=== PATIENT | female | born 1935 | race African-American/Black ===

== ENCOUNTER → 2017-06-06 | Day surgery (SDC) | payer BC ==
[~2017-06-06] MED LIST: AMLO5TAB2 PO; ASPI325T8 PO; ATOR10TA60 PO; CLON0.1T PO; DOCU-109 PO; FOLI1TAB16 PO; HYDR-2762 PO; HYDROmorphone 2 MG/ML VIAL IV PRN; IV RINGERS,LACTATED 1000ML 1,000 ML IV SCH; LIDOCAINE 1% PF 2 ML VIAL. ID PRN; LIDOCAINE 2% PF Vial for OR 5 ML VIAL. ONE; METO-269 PO; MIRT15TA3 PO; MORPHINE SULFATE 2 MG/ML DISP.SYRIN. IV PRN; OMEP40CA5 PO; ONDANSETRON PF 4 MG/2 ML VIAL. IV PRN; PROCHLORPERAZINE 10 MG/2 ML VIAL. IV PRN; PROPOFOL 60 ML IV ONE; QUIN40TA16 PO; SODIUM PHOSPHATES 19/7GM 133 ML ENEMA. ONE; TRAZ100T12 PO; VERA240T72 PO; fentaNYL PF VIAL 100 MCG/2 ML VIAL IV PRN
[2017-06-06 10:10] VITALS: BP 156/95
--- NOTE | 2017-06-07 15:05 | PATHOLOGY ---
PATHOLOGY REPORT * * * * * * * * FINAL DIAGNOSIS: Gastric biopsies, gastric ulcer: - Reactive gastropathy with focal mild chronic inflammation. (JPM:domenic; 06/07/2017) COMMENT: Sections of the gastric ulcer biopsy reveal segments of gastric antral mucosa showing prominent foveolar hyperplasia and focal mild chronic inflammation. An immunoperoxidase stain for Helicobacter is obtained. No Helicobacter organisms are identified. The findings are consistent with a reactive gastropathy. There is no evidence of malignancy. Special stain performed: Immunoperoxidase stain for Helicobacter. (JPM:domenic; 06/07/2017) REPORT ELECTRONICALLY SIGNED BY: Malachi Silva M.D. DATE/TIME: 06/07/2017 15:04 * * * * * * * * GROSS PATHOLOGY: Received in formalin labeled "Canelo Griffiths, gastric ulcer BX," are 3 segments of french soft tissue measuring 1.3 x 0.5 x 0.3 cm in aggregate dimensions and ranging from 0.4 to 0.5 cm in maximum dimension. The specimen is submitted entirely in cassette A1. (TSD; 06/06/2017) INITIAL CPT CODE(S): A; 76297, 42703 Professional services performed by [facility] at [address] [address] Technical services performed by [facility] at [address] [place] [address], [facility] [address] [address]. SPECIMEN(S) RECEIVED: A.Gastric ulcer biopsy CLINICAL HISTORY: melena PATIENT: CANELO GRIFFITHS /AGE: 10 1935 (Age: 81) PATIENT #: [id number] ALT CASE #: SPECIMEN COLLECTION DATE: 06/06/2017 SPECIMEN RECEIVED DATE: 06/06/2017 [facility] - [address] [place] [address] - PHONE: [phone] * * * END OF REPORT * * *
== END | disposition home or self-care (01) ==
LOC: ENDOS 07:43
PROVIDERS: ATTEND Internal Medicine Gastroenterology
DX: K64.0 First degree hemorrhoids (principal); K57.30 Diverticulosis of large intestine without perforation or abscess without bleeding; K29.50 Unspecified chronic gastritis without bleeding; K25.9 Gastric ulcer, unspecified as acute or chronic, without hemorrhage or perforation; E78.00 Pure hypercholesterolemia, unspecified; I10 Essential (primary) hypertension; K21.9 Gastro-esophageal reflux disease without esophagitis; M19.91 Primary osteoarthritis, unspecified site; F32.9 Major depressive disorder, single episode, unspecified; Z82.49 Family history of ischemic heart disease and other diseases of the circulatory system; Z86.69 Personal history of other diseases of the nervous system and sense organs; Z86.73 Personal history of transient ischemic attack (TIA), and cerebral infarction without residual deficits; Z90.710 Acquired absence of both cervix and uterus
CPT/HCPCS: 43239; 45378; 88305; 88342; J2704; J2001

== ENCOUNTER → 2017-07-12 | Outpatient (CLI) | payer BC ==
[2017-06-06 10:10] VITALS: BP 156/95
[~2017-07-12] MED LIST changes: -HYDROmorphone 2 MG/ML VIAL IV PRN; -IV RINGERS,LACTATED 1000ML 1,000 ML IV SCH; -LIDOCAINE 1% PF 2 ML VIAL. ID PRN; -LIDOCAINE 2% PF Vial for OR 5 ML VIAL. ONE; -MORPHINE SULFATE 2 MG/ML DISP.SYRIN. IV PRN; -ONDANSETRON PF 4 MG/2 ML VIAL. IV PRN; -PROCHLORPERAZINE 10 MG/2 ML VIAL. IV PRN; -PROPOFOL 60 ML IV ONE; -SODIUM PHOSPHATES 19/7GM 133 ML ENEMA. ONE; -fentaNYL PF VIAL 100 MCG/2 ML VIAL IV PRN
--- NOTE | 2017-07-12 10:04 | RAD ---
DATE: 07/12/2017 EXAM: DIGITAL SCREEN BILAT W/CAD HISTORY: Routine screening COMPARISON: 06/06/2016 This study was interpreted with the benefit of Computerized Aided Detection (CAD). The breast parenchyma shows scattered fibroglandular densities. Breast parenchyma level B. FINDINGS: There is an old breast biopsy marker present laterally in the right breast related to a small unchanged nodule. No new or enlarging breast densities are seen. Benign type calcifications are present. No suspicious microcalcifications have developed. IMPRESSION: Stable mammograms without evidence of malignancy. BI-RADS CATEGORY: 2 BENIGN FINDING(S) RECOMMENDED FOLLOW-UP: 12M 12 MONTH FOLLOW-UP PQRS compliance statement: Patient information was entered into a reminder system with a target due date for the next mammogram. Mammography is a sensitive method for finding small breast cancers, but it does not detect them all and is not a substitute for careful clinical examination. A negative mammogram does not negate a clinically suspicious finding and should not result in delay in biopsying a clinically suspicious abnormality. "Our facility is accredited by the [employer] Mammography Program."
== END | disposition home or self-care (01) ==
LOC: MAMMO 09:25
PROVIDERS: ATTEND Internal Medicine
DX: Z12.31 Encounter for screening mammogram for malignant neoplasm of breast (principal)
CPT/HCPCS: G0202; 77067

== ENCOUNTER → 2017-11-02 | Day surgery (SDC) | payer BC ==
[~2017-11-02] MED LIST changes: -AMLO5TAB2 PO; -ASPI325T8 PO; -ATOR10TA60 PO; -CLON0.1T PO; -DOCU-109 PO; -FOLI1TAB16 PO; -HYDR-2762 PO; +HYDROmorphone 2 MG/ML VIAL IV; +LIDOCAINE 1% PF 2 ML VIAL. ID; +LIDOCAINE 2% 100 MG/5 ML SYRINGE.; -METO-269 PO; -MIRT15TA3 PO; +MORPHINE SULFATE 4 MG/ML DISP.SYRIN. IV; -OMEP40CA5 PO; +ONDANSETRON PF 4 MG/2 ML VIAL. IV; +PROCHLORPERAZINE 10 MG/2 ML VIAL. IV; +PROPOFOL 20 ML IV; -QUIN40TA16 PO; -TRAZ100T12 PO; -VERA240T72 PO; +fentaNYL PF VIAL 100 MCG/2 ML VIAL IV
[2017-11-02] MEDS: IV RINGERS,LACTATED 1000ML 1,000 ML IV (07:28)
== END | disposition home or self-care (01) ==
LOC: ENDOS 07:03
DX: Z09 Encounter for follow-up examination after completed treatment for conditions other than malignant neoplasm (principal); K29.50 Unspecified chronic gastritis without bleeding; E78.5 Hyperlipidemia, unspecified; I10 Essential (primary) hypertension; Z79.82 Long term (current) use of aspirin; K21.9 Gastro-esophageal reflux disease without esophagitis; Z87.11 Personal history of peptic ulcer disease; Z90.710 Acquired absence of both cervix and uterus
CPT/HCPCS: 43235; J2704

== ENCOUNTER → 2018-07-16 | Outpatient (CLI) | payer BC ==
[2017-11-02 08:44] VITALS: BP 134/79
[~2018-07-16] MED LIST changes: +AMLO5TAB7 PO; +ASPI325T8 PO; +ATOR10TA60 PO; +CLON0.1T PO; +DOCU-109 PO; +FOLI1TAB16 PO; +HYDR-2762 PO; -HYDROmorphone 2 MG/ML VIAL IV; -LIDOCAINE 1% PF 2 ML VIAL. ID; -LIDOCAINE 2% 100 MG/5 ML SYRINGE.; +METO-269 PO; +MIRT15TA3 PO; -MORPHINE SULFATE 4 MG/ML DISP.SYRIN. IV; +OMEP40CA5 PO; -ONDANSETRON PF 4 MG/2 ML VIAL. IV; -PROCHLORPERAZINE 10 MG/2 ML VIAL. IV; -PROPOFOL 20 ML IV; +QUIN40TA16 PO; +TRAZ-86 PO; +VERA240T72 PO; -fentaNYL PF VIAL 100 MCG/2 ML VIAL IV
--- NOTE | 2018-07-16 15:23 | RAD ---
DATE: 07/16/2018 EXAM: MAMMO SAMANTHA SCREENING BILATERAL HISTORY: Benign left breast biopsy 3 years ago COMPARISON: 02/18/2015, 06/06/2016, 07/12/2017 mammographic exams This study was interpreted with the benefit of Computerized Aided Detection (CAD). Breast Density: SCATTERED The breast parenchyma shows scattered fibroglandular densities. Breast parenchyma level B. FINDINGS: Vascular calcifications are present. Biopsy clip marker involves the anterior outer right breast. No new mass or distortion. Benign calcifications are present. No suspicious calcification clusters. IMPRESSION: Benign BI-RADS CATEGORY: 2 BENIGN FINDING(S) RECOMMENDED FOLLOW-UP: 12M 12 MONTH FOLLOW-UP PQRS compliance statement: Patient information was entered into a reminder system with a target due date in one year for the next mammogram. Mammography is a sensitive method for finding small breast cancers, but it does not detect them all and is not a substitute for careful clinical examination. A negative mammogram does not negate a clinically suspicious finding and should not result in delay in biopsying a clinically suspicious abnormality. "Our facility is accredited by the [employer] Mammography [employer]."
== END | disposition home or self-care (01) ==
LOC: MAMMO 10:54
PROVIDERS: ATTEND Family Medicine
DX: Z12.31 Encounter for screening mammogram for malignant neoplasm of breast (principal)
CPT/HCPCS: 77063; 77067

== ENCOUNTER → 2018-08-29 | Outpatient (CLI) | payer BC ==
[2017-11-02 08:44] VITALS: BP 134/79
[~2018-08-29] MED LIST changes: -HYDR-2762 PO; +HYDR-2765 PO
--- NOTE | 2018-08-29 15:35 | KCIC ---
MRI Brain without contrast History: Alzheimer's, dizziness, chronic headache Technique: Multiplanar, multisequential noncontrast MR imaging was performed of the brain. Comparison: April 20, 2014 Findings: There is no evidence of recent infarct. There is no intra-axial mass effect or midline shift. There is no new extra-axial fluid collection or significant hemosiderin deposition of the brain parenchyma. There is again multifocal [id number] T2 and FLAIR hyperintense abnormality of the supratentorial parenchyma bilaterally greatest of the frontal parietal white matter, also mild involvement of the bilateral basal ganglia and left thalamus. There is new focus of T2 and FLAIR hyperintense signal of the left fan probably due to sequela of old lacunar infarct. Mild T2 and FLAIR hyperintense signal of the bilateral cerebellum is similar. Small extra-axial mass at the left frontal vertex about 0.7 cm is difficult to exclude on this noncontrast exam, hyperintense on diffusion sequence. There is preservation of the major arterial intracranial flow voids at the skull base. Mastoid air cells are aerated. There has been lens surgery bilaterally. There is patchy mild bilateral ethmoid air cell mucosal thickening. There is likely mucus retention cyst of the left maxillary sinus about 1.2 cm with somewhat complex signal features. Ventricular size is within normal limits. There is mild generalized supratentorial involutional change. Cerebellar tonsils are normal in location. There is partially empty sella. There is degenerative disc disease and spondylosis of visualized cervical spine. Impression: 1. There is no evidence of recent infarct or intracranial mass effect. Small focus of signal change of left fan is new since previous 2013 exam, could be due to sequela of old lacunar infarct. Other multifocal T2 and FLAIR hyperintense signal abnormality of the supratentorial parenchyma and bilateral cerebellum is nonspecific, more commonly due to chronic microvascular ischemic disease in a patient this age. Small extra-axial mass at the left frontal vertex is difficult to exclude on this exam. Electronically signed by: Al Ashley MD (08/29/2018 3:31 PM) [facility]-KCIC1
== END | disposition home or self-care (01) ==
LOC: KCIC MRI 13:43
PROVIDERS: ATTEND Psychiatry & Neurology Neurology with Special Qualifications in Child Neurology
DX: G30.1 Alzheimer's disease with late onset (principal); G44.229 Chronic tension-type headache, not intractable; R42 Dizziness and giddiness; M50.30 Other cervical disc degeneration, unspecified cervical region; M47.892 Other spondylosis, cervical region
CPT/HCPCS: 70551

== ENCOUNTER → 2018-09-30 | Outpatient (CLI) | payer BC ==
[2017-11-02 08:44] VITALS: BP 134/79
[~2018-09-30] MED LIST changes: +AMLO5TAB10 PO; -AMLO5TAB7 PO
--- NOTE | 2018-10-01 15:02 | SLEEP ---
DATE OF STUDY: 09/30/2018 OBJECTIVE: The patient is an 83-year-old female with excessive somnolence and division supervisor headaches, rare episodes of nocturnal pulmonary difficulties. No one is at home to witness whether she has any apnea. Height 67 inches, weight 159 pounds, BMI 24.9. [place] sleep score of 15. There are a total of 64 respiratory events for an apnea-hypopnea index of 15.4 events per hour of sleep. The vast majority of these are obstructive. The minimum oxygen saturation is 82%. No significant cardiac arrhythmias observed. IMPRESSION: Abnormal home polysomnogram study showing significant obstructive sleep apnea and hypopnea. RECOMMENDATIONS: I will attempt to arrange for a variable CPAP machine at the patient's home and we will decide on further studies including in-lab titration depending on her course. Thank you for letting us help with the patient's care. LANDY ANTHONY MD DR: ALFRED/ofelia JOB#: [id number] / [id number] ISAURA Hill MD
== END | disposition home or self-care (01) ==
LOC: RT 09:55
PROVIDERS: ATTEND Psychiatry & Neurology Neurology with Special Qualifications in Child Neurology
DX: G47.33 Obstructive sleep apnea (adult) (pediatric) (principal)
CPT/HCPCS: G0399

== ENCOUNTER 2020-04-24 19:47 | Emergency (ER) | payer BC ==
[~2020-04-24] VITALS: Ht 172.7 cm; Wt 54.0 kg
[~2020-04-24 19:47] MED LIST changes: +OMEP40CA45 PO; -OMEP40CA5 PO; +TRAZ-123 PO; -TRAZ-86 PO; -VERA240T72 PO; +VERA240T8 PO
[2020-04-24 20:43] LABS: BILIRUBIN,URINE NEGATIVE (NEG); CLARITY,URINE CLEAR; COLOR,URINE YELLOW; NITRITE,URINE NEGATIVE (NEG); PH,URINE 5.5 (<5.0-8.0); PROTEIN,URINE 30 mg/dL (NEG-TRACE)
[2020-04-24 20:52] LABS: BASO % 0 % (0-3); EOS % 0 % (0-3); HEMATOCRIT 40.7 % (36.0-47.0); HEMOGLOBIN 13.4 g/dL (12.0-15.5); LYMPH # 1.3 x10^3/uL (1.0-4.8); LYMPH % 19 % (24-48); MEAN CORPUSCULAR HEMOGLOBIN 27 pg (25-35); MEAN CORPUSCULAR HGB CONC 33 g/dL (31-37); MEAN CORPUSCULAR VOLUME 82 fL (79-100); MONO # 0.5 x10^3/uL (0.0-1.1); MONO % 7 % (0-9); NEUT # 5.2 x10^3/uL (1.8-7.7); NEUT % 74 % (31-73); PLATELET COUNT 155 x10^3/uL (140-400); RED BLOOD COUNT 4.98 x10^6/uL (3.50-5.40); RED CELL DISTRIBUTION WIDTH 15.2 % (11.5-14.5)
[2020-04-24 21:00] LABS: SALIC < 2.8 mg/dL (2.8-20.0)
[2020-04-24 21:01] LABS: BACTERIA,URINE MANY /HPF (0-FEW); SQUAMOUS EPITHELIAL CELL,UR MANY /LPF; WBC,URINE >40 /HPF (0-4)
[2020-04-24 21:04] LABS: CALCIUM 8.5 mg/dL (8.5-10.1); CREATININE 0.7 mg/dL (0.6-1.0); GFR 96.5; POTASSIUM 3.3 mmol/L (3.5-5.1)
[2020-04-24 21:10] LABS: ALBUMIN 3.3 g/dL (3.4-5.0); ALBUMIN/GLOBULIN RATIO 0.9 (1.0-1.7); TOTAL BILIRUBIN 0.5 mg/dL (0.2-1.0); TOTAL PROTEIN 6.8 g/dL (6.4-8.2)
--- NOTE | 2020-04-24 21:38 | PHYS DOC ---
Past Medical History Past Medical History: No Pertinent History Past Surgical History: No Surgical History Smoking Status: Never Smoker Alcohol Use: None General Adult EDM: Chief Complaint: ALTERED MENTAL STATUS HPI: HPI: The history was obtained from the patient and daughter. Patient is a 84-year-old female with PMH hyperlipidemia, hypertension, history of TIA who presents with a chief complaint of confusion. Daughter states the patient's last known well was around 2 PM this afternoon. This was approximately 6 hours prior to arrival. Daughter states the patient has been more confused than normal throughout the day. She states she is forgot things like the year and got today confused with yesterday. Daughter notes a fall that occurred approximately 2 weeks ago. She does ambulate with the assistance of a cane. Patient denies any fevers or cough. Denies abdominal pain. Denies any chest pain or shortness of breath. She denies any urinary symptoms. She denies any recent antibiotics or hospitalizations. Patient states that she feels completely fine. However, she does not know what year it is and daughter states this is atypical for her. Daughter notes that family members have been in and out of the patient's house although the patient has not had any direct exposure to coronavirus that she knows of. Denies history of travel. No other complaints. Review of Systems: Review of Systems: Constitutional: Denies fever or chills. [] Eyes: Denies change in visual acuity. [] HENT: Denies nasal congestion or sore throat. [] Respiratory: Denies cough or shortness of breath. [] Cardiovascular: Denies chest pain or edema. [] GI: Denies abdominal pain, nausea, vomiting, bloody stools or diarrhea. [] : Denies dysuria. [] Musculoskeletal: Denies back pain or joint pain. [] Integument: Denies rash. [] Neurologic: Positive for confusion Endocrine: Denies polyuria or polydipsia. [] Lymphatic: Denies swollen glands. [] Psychiatric: Denies depression or anxiety. [] Heart Score: Risk Factors: Risk Factors: DM, Current or recent (<one month) smoker, HTN, HLP, family history of CAD, obesity. Risk Scores: Score 0 - 3: 2.5% MACE over next 6 weeks - Discharge Home Score 4 - 6: 20.3% MACE over next 6 weeks - Admit for Clinical Observation Score 7 - 10: 72.7% MACE over next 6 weeks - Early Invasive Strategies Allergies: Allergies: Allergies Coded Allergies Type Severity Reaction Last Updated Verified No Known Drug Allergies 06/06/17 No Physical Exam: PE: Constitutional: Well developed, well nourished, no acute distress, non-toxic appearance. [] HENT: Normocephalic, atraumatic, bilateral external ears normal, oropharynx moist, no oral exudates, nose normal. [] Eyes: PERRLA, EOMI, conjunctiva normal, no discharge. [] Neck: Normal range of motion, no tenderness, supple, no stridor. [] Cardiovascular:Heart rate regular rhythm, no murmur [] Lungs & Thorax: Bilateral breath sounds clear to auscultation [] Abdomen: Soft, nontender, nonacute abdomen. No involuntary guarding or rigidity noted. No acute peritonitis. Skin: Warm, dry, no erythema, no rash. [] Back: No tenderness, no CVA tenderness. [] Extremities: No tenderness, no cyanosis, no clubbing, ROM intact, no edema. [] Neurologic: Alert with intact cognitive function. No aphasia, dysarthria, or n eglect. GCS 15. Pupils 3 mm briskly reactive b/l. No APD present. Cranial nerves 2-12 grossly intact; no facial asymmetry present, tongue midline, shoulder shrugging strength intact. Strength 5/5 and symmetric throughout. Light touch sensation intact throughout. Cerebellar testing appropriate without evidence of dysdiadochokinesia. DTR's 2+ in all 4 extremities. Negative pronator drift bilaterally. Psychologic: Affect normal, judgement normal, mood normal. [] 1A: Level of consciousness Alert and keenly responsive 0 Arouses to minor stimulation +1 Requires repeated stimulation to arouse +2 Movements to pain +2 Postures are unresponsive +3 1B: Ask month and age Both questions were answered correctly 0 1 question right +1 0 questions were +2 Dysarthric/intubated/trauma/language barrier +1 Aphasic + 2 1C: "Blink eyes and squeeze hands" Performs both tasks 0 Performs one task +1 Perform 0 tasks +2 2: Horizontal extraocular movements Normal 0 Partial gaze palsy: Can be overcome +1 Partial gaze palsy: Corrects with oculocephalic reflex +1 Forced gaze palsy: Cannot be overcome +2 3: Visual wise No visual loss 0 Partial hemianopia +1 Complete hemianopia +2 Patient is bilaterally blind +3 Bilateral hemianopsia +3 4: Facial palsy Normal symmetry 0 Minor paralysis +1 Partial paralysis + 2 Unilateral complete paralysis +3 Bilateral complete paralysis +3 5A: Left arm motor drift No drift for 10 seconds 0 Drift, but does not hit bed + 1 Drift, hits bed + 2 Some effort against gravity +2 No effort against gravity +3 No movement +4 Amputation/joint fusion 0 5B: Right arm motor drift No drift for 10 seconds 0 Drift, but does not hit bed + 1 Drift, hits bed + 2 Some effort against gravity +2 No effort against gravity +3 No movement +4 Amputation/joint fusion 0 6A: Left leg motor drift No drift for 10 seconds 0 Drift, but does not hit bed + 1 Drift, hits bed + 2 Some effort against gravity +2 No effort against gravity +3 No movement +4 Amputation/joint fusion 0 6B: Right leg motor drift No drift for 10 seconds 0 Drift, but does not hit bed + 1 Drift, hits bed + 2 Some effort against gravity +2 No effort against gravity +3 No movement +4 Amputation/joint fusion 0 7: Limb ataxia No ataxia 0 Ataxia in one limb +1 Ataxia in 2 limbs +2 Does not understand 0 Paralyzed 0 Amputation/joint fusion 0 8: Sensation Normal; no sensory loss 0 Mild to moderate loss +1 Complete loss +2 No response and quadriplegic +2 Coma unresponsive +2 9: Language/aphasia Normal; no aphasia 0 Mild to moderate aphasia +1 Severe aphasia + 2 Mute/global aphasia +3 Coma/unresponsive +3 10: Dysarthria Normal 0 Mild to moderate dysarthria +1 Severe dysarthria +2 Mute/anrthric +2 Intubated/unable to test 0 11: Extinction No abnormality 0 Visual/tactile/auditory/spatial/personal inattention +1 Extinction to bilateral simultaneous stimulus +1 Profound rene-inattention +2 Extinction to greater than 1 modality +2 Current Patient Data: Labs: Laboratory Tests Test 04/24/20 20:20 04/24/20 20:33 Urine Collection Type Unknown Urine Color Yellow Urine Clarity Clear Urine pH 5.5 (<5.0-8.0) Urine Specific [place] 1.025 (1.000-1.030) Urine Protein 30 mg/dL (NEG-TRACE) Urine Glucose (UA) Negative mg/dL (NEG) Urine Ketones (Stick) Trace mg/dL (NEG) Urine Blood Negative (NEG) Urine Nitrite Negative (NEG) Urine Bilirubin Negative (NEG) Urine Urobilinogen Dipstick 1.0 mg/dL (0.2 mg/dL) Urine Leukocyte Esterase Moderate (NEG) Urine RBC 6-10 /HPF (0-2) Urine WBC >40 /HPF (0-4) Urine Squamous Epithelial Cells Many /LPF Urine Bacteria Many /HPF (0-FEW) Urine Mucus Marked /LPF White Blood Count 7.0 x10^3/uL (4.0-11.0) Red Blood Count 4.98 x10^6/uL (3.50-5.40) Hemoglobin 13.4 g/dL (12.0-15.5) Hematocrit 40.7 % (36.0-47.0) Mean Corpuscular Volume 82 fL (79-100) Mean Corpuscular Hemoglobin 27 pg (25-35) Mean Corpuscular Hemoglobin Concent 33 g/dL (31-37) Red Cell Distribution Width 15.2 % (11.5-14.5) H Platelet Count 155 x10^3/uL (140-400) Neutrophils (%) (Auto) 74 % (31-73) H Lymphocytes (%) (Auto) 19 % (24-48) L Monocytes (%) (Auto) 7 % (0-9) Eosinophils (%) (Auto) 0 % (0-3) Basophils (%) (Auto) 0 % (0-3) Neutrophils # (Auto) 5.2 x10^3/uL (1.8-7.7) Lymphocytes # (Auto) 1.3 x10^3/uL (1.0-4.8) Monocytes # (Auto) 0.5 x10^3/uL (0.0-1.1) Eosinophils # (Auto) 0.0 x10^3/uL (0.0-0.7) Basophils # (Auto) 0.0 x10^3/uL (0.0-0.2) Sodium Level 140 mmol/L (136-145) Potassium Level 3.3 mmol/L (3.5-5.1) L Chloride Level 104 mmol/L (98-107) Carbon Dioxide Level 28 mmol/L (21-32) Anion Gap 8 (6-14) Blood Urea Nitrogen 13 mg/dL (7-20) Creatinine 0.7 mg/dL (0.6-1.0) Estimated GFR (Cockcroft-Gault) 96.5 BUN/Creatinine Ratio 19 (6-20) Glucose Level 135 mg/dL (70-99) H Calcium Level 8.5 mg/dL (8.5-10.1) Total Bilirubin 0.5 mg/dL (0.2-1.0) Aspartate Amino Transferase (AST) 20 U/L (15-37) Alanine Aminotransferase (ALT) 20 U/L (14-59) Alkaline Phosphatase 53 U/L (46-116) Creatine Kinase 124 U/L (26-192) Total Protein 6.8 g/dL (6.4-8.2) Albumin 3.3 g/dL (3.4-5.0) L Albumin/Globulin Ratio 0.9 (1.0-1.7) L Lipase 68 U/L (73-393) L Thyroid Stimulating Hormone (TSH) 2.403 uIU/mL (0.358-3.74) Salicylates Level < 2.8 mg/dL (2.8-20.0) L Salicylate Last Dose Date Unknown Salicylate Last Dose Time Unknown Laboratory Tests 04/24/20 20:33 Laboratory Tests 04/24/20 20:33 Vital Signs: Vital Signs Date Time Temp Pulse Resp B/P (MAP) Pulse Ox O2 Delivery O2 Flow Rate FiO2 04/24/20 20:15 100.5 90 18 124/87 (99) 94 Room Air 100.5 EKG: EKG: EKG consistent with normal sinus rhythm. Ventricular to 78 bpm. Left axis deviation noted. No acute ischemic changes appreciated. Left anterior fascicu lar block present. Overall similar to previous EKG [] Radiology/Procedures: Radiology/Procedures: [facility] [address] [place] [address] IMAGING REPORT Signed PATIENT: CANELO GRIFFITHS ACCOUNT: [id number] : 1935 LOCATION: ER AGE: 84 SEX: F EXAM STATUS: REG ER ORD. PHYSICIAN: FORTINO LORENZO DO REASON: fall. confusion, PUI PROCEDURE: CT HEAD AND CERVICAL SPINE WO Exam: CT head and cervical spine without contrast INDICATION: Fall, confusion TECHNIQUE: Sequential axial images through the head and cervical spine were obtained without the administration of IV contrast. Comparisons: MRI brain 08/29/2018 FINDINGS: Head: No focal parenchymal lesion or hemorrhage is identified. There is no midline shift or sulcal effacement. Patchy hypodensity in the periventricular white matter. No acute vascular territory infarction is identified. Aguayo-white distinction is preserved. The ventricular system is within normal limits without compression hydrocephalus. The basal cisterns are well maintained. The visualized portions of the paranasal sinuses and mastoid air cells are well-pneumatized. No acute fractures. Cervical spine: Straightening of cervical spine which may be positional. Vertebral body heights are well-maintained. Fracture to the cervical spine is not identified. Multilevel spondylotic change in cervical spine with degenerative disc disease diffusely throughout cervical spine. No significant facet arthropathy is noted. Visualized paraspinal soft tissues are unremarkable. IMPRESSION: 1. No acute intracranial abnormality. 2. Negative CT C-spine for acute traumatic injury. Exposure: One or more of the following in the visualized dose reduction techniques were utilized for this examination: 1. Automated exposure control 2. Adjustment of the MA and/or KV according to patient size Use of iterative of reconstructive technique Electronically signed by: Leda Bhatti MD (04/24/2020 10:53 PM) [id number] DICTATED and SIGNED BY: LEDA BHATTI MD DATE: 04/24/20 2253 [] Course & Med Decision Making: Course & Med Decision Making Pertinent Labs and Imaging studies reviewed. (See chart for details) Patient is an 84-year-old female who presents with a chief complaint of confusion. Initial vital signs notable for fever. Physical exam noted above. CT head imaging nonacute. Stroke alert was not called as the patient's symptoms are not consistent with CVA. Basic labs were obtained. She does have evidence of urinary tract infection. Patient is alert and oriented x2 in the exam room for me. She is slightly confused to time. No focal neurologic deficits. I do feel her UTI could explain her slight confusion. She was given 1 g Rocephin. Urine culture and blood cultures pending. Overall given the patient's temperature, source of infection, and age I did express my recommendation to hospital the patient for overnight monitoring. Daughter states that she is a doctor of counseling at [employer] and feels comfortable monitoring her mother at home. I do feel this is also reasonable alternative. Her tempe rature has improved. Her confusion has also improved. She was given antibiotics in the emergency department. She be discharged home with a course of antibiotics. Daughter was given explicit signs and symptoms to monitor for that would necessitate the need to return to the hospital. Daughter states that she can stay with the patient over the next several days. Furthermore she states she can also get the patient into see her primary care physician in 2 days. Return precautions discussed and understood. Stable for discharge. Dragon Disclaimer: Jaman Disclaimer: This electronic medical record was generated, in whole or in part, using a voice recognition dictation system. Departure Departure Impression: Primary Impression: Acute UTI Additional Impressions: Confused Fever Qualified Codes: R50.9 - Fever, unspecified Disposition: HOME, SELF-CARE Condition: STABLE Referrals: ISAURA KIDD MD (PCP) Patient Instructions: Urinary Tract Infection Additional Instructions: Please follow-up with your primary care physician in the next 2 to 3 days. Please return emergency department the next 1 to 2 days should your symptoms not improve or worsen. Scripts Ondansetron Hcl (ZOFRAN) 4 Mg Tablet 4 MG PO PRN TID PRN for NAUSEA, #15 nausea/vomiting Prov: FORTINO LORENZO DO 04/24/20 Cephalexin (KEFLEX) 500 Mg Capsule 1 CAP PO BID for 7 Days, #14 CAP 0 Refills Prov: FORTINO LORENZO DO 04/24/20 Justicifation of Admission Dx: Justifications for Admission: Justification of Admission Dx: N/A FORTINO LORENZO DO Apr 24, 2020 21:38
--- NOTE | 2020-04-24 21:42 | RAD ---
Exam: Chest one view INDICATION: Fever and confusion TECHNIQUE: Frontal view of the chest Comparisons: None FINDINGS: The cardiomediastinal silhouette and pulmonary vessels are within normal limits. The lung and pleural spaces are clear. IMPRESSION: No acute cardiopulmonary process. Electronically signed by: Leda Perry MD (04/24/2020 9:39 PM) [id number]
[2020-04-24] MEDS ORDERED: cefTRIAXone IV Push 1 GM VIAL. IVP ONE (22:00)
[2020-04-24 22:53] VITALS: BP 128/79
--- NOTE | 2020-04-24 22:55 | RAD ---
Exam: CT head and cervical spine without contrast INDICATION: Fall, confusion TECHNIQUE: Sequential axial images through the head and cervical spine were obtained without the administration of IV contrast. Comparisons: MRI brain 08/29/2018 FINDINGS: Head: No focal parenchymal lesion or hemorrhage is identified. There is no midline shift or sulcal effacement. Patchy hypodensity in the periventricular white matter. No acute vascular territory infarction is identified. Aguayo-white distinction is preserved. The ventricular system is within normal limits without compression hydrocephalus. The basal cisterns are well maintained. The visualized portions of the paranasal sinuses and mastoid air cells are well-pneumatized. No acute fractures. Cervical spine: Straightening of cervical spine which may be positional. Vertebral body heights are well-maintained. Fracture to the cervical spine is not identified. Multilevel spondylotic change in cervical spine with degenerative disc disease diffusely throughout cervical spine. No significant facet arthropathy is noted. Visualized paraspinal soft tissues are unremarkable. IMPRESSION: 1. No acute intracranial abnormality. 2. Negative CT C-spine for acute traumatic injury. Exposure: One or more of the following in the visualized dose reduction techniques were utilized for this examination: 1. Automated exposure control 2. Adjustment of the MA and/or KV according to patient size Use of iterative of reconstructive technique Electronically signed by: Leda Perry MD (04/24/2020 10:53 PM) [id number]
[2020-04-24] MEDS ORDERED: ONDA4TAB7 PO (23:30)
[2020-04-24] MEDS ORDERED: CEPH-264 PO (23:30)
--- NOTE | 2020-04-26 07:13 | EKG ---
[facility] [address] [place] [address] Test Date: 2020-04-24 Test Time: 20:54:41 Pat Name: CANELO GRIFFITHS Department: Room: Gender: F Phone Counselor: : 1935 Requested By: FORTINO LORENZO Order Number: [id number] Reading MD: Sami Enriquez MD Measurements Intervals [place] Rate: 78 P: 42 ID: [id number] QRS: -55 QRSD: 88 T: 47 QT: 348 QTc: 400 Interpretive Statements SINUS RHYTHM ABNORMAL LEFT AXIS DEVIATION Electronically Signed On 04-27-2020 9:09:08 CDT by Sami Enriquez MD
--- NOTE | 2020-04-26 15:16 | NUR ---
IP: Informed pt and her daughter that her COVID test is positive. Instructed them to be quarantined for 14 days. Both verbalized understanding.
== END 2020-04-24 23:55 | disposition home or self-care (01) ==
LOC: ER 19:47
DX: N39.0 Urinary tract infection, site not specified (principal); R41.0 Disorientation, unspecified; U07.1 COVID-19; E78.00 Pure hypercholesterolemia, unspecified; I10 Essential (primary) hypertension; Z86.73 Personal history of transient ischemic attack (TIA), and cerebral infarction without residual deficits
CPT/HCPCS: 36415; 70450; 71045; 72125; 80053; 80329; 81001; 82550; 83690; 84443; 85025; 87040; 87086; 93005; 96374; 99285; C9803; J0696; U0003; G0480